=== PATIENT | female | born 1960 | race Caucasian/White ===

== ENCOUNTER 2019-11-25 11:19 | Observation (INO) ==
[~2019-11-25 11:19] MED LIST: Buffered Lidocaine 1% SYRIN 1 ml INTRADERM ONE; Famotidine IV 10 MG/ML 2 ml VIAL (20 mg) IV ONE; Lactated Ringers 1000 ml BAG 1,000 ML IV SCH
[2019-11-25] MEDS ORDERED: Buffered Lidocaine 1% SYRIN 1 ml INTRADERM ONE (11:42)
[2019-11-25] MEDS ORDERED: Famotidine IV 10 MG/ML 2 ml VIAL (20 mg) ONE (11:42)
[2019-11-25] MEDS ORDERED: ceFAZolin 2 GM PREMIX 2 GM/50 ML BAG ONE (11:42)
[2019-11-25] MEDS ORDERED: Midazolam 5 mg/5 ml VIAL 1 mg/ml 5 ml VIAL (5 mg) ONE (12:40)
[2019-11-25] MEDS ORDERED: Ketamine HCL 50 mg/ml 10 ml VIAL (500 MG) ONE (14:28)
[2019-11-25] MEDS ORDERED: Propofol 10 MG/ML 20 ML BTL ONE ×2 (14:28→14:41)
[2019-11-25] MEDS ORDERED: EPHEDrine (Pressors) 50 MG/ML VIAL ONE (14:28)
[2019-11-25] MEDS ORDERED: Dexamethasone IV 4 MG/ML VIAL 1 ml VIAL ONE (14:28)
[2019-11-25] MEDS ORDERED: Glycopyrrolate IV 0.2 MG/ML 1 ML VIAL ONE (14:28)
[2019-11-25] MEDS ORDERED: Phenylephrine 40 mcg/mL 10mL (400mcg) SYRINGE ONE (14:28)
[2019-11-25] MEDS ORDERED: Phenylephrine IV 10 MG/ML 1 ml VIAL ONE (14:28)
[2019-11-25] MEDS ORDERED: Ondansetron 4 mg VIAL 2 MG/ML 2 ml VIAL ONE (14:28)
[2019-11-25] MEDS ORDERED: Morphine 2 MG/ML SYRINGE IV PRN (14:34)
[2019-11-25] MEDS ORDERED: Ondansetron ODT 4 mg TAB 4 MG TAB PO PRN (14:34)
[2019-11-25] MEDS ORDERED: Ondansetron 4 mg VIAL 2 MG/ML 2 ml VIAL IV PRN (14:34)
[2019-11-25] MEDS ORDERED: diPHENhydraMINE IV 50 MG/ML 1 ml VIAL (BENADRYL) IV PRN (14:34)
[2019-11-25] MEDS ORDERED: Magnesium Hydroxide LIQ 30 ML UDC PO PRN (14:34)
[2019-11-25] MEDS ORDERED: Lactulose 30 ml UDC PO PRN (14:34)
[2019-11-25] MEDS ORDERED: diPHENhydraMINE 25 mg TAB PO PRN (14:34)
[2019-11-25] MEDS ORDERED: Albuterol HFA INHALER 8 gm MDI INH PRN (14:39)
[2019-11-25] MEDS ORDERED: ROPIVACAINE 5 MG/ML 30 ML BTL (0.5%) ONE (14:57)
[2019-11-25] MEDS ORDERED: HYDROmorphone 1 MG/1 ML SYRINGE ONE (15:03)
[2019-11-25] MEDS ORDERED: DiMENhydriNATE IV 50 mg/ml 1 ml VIAL IV PUSH PRN (15:22)
[2019-11-25] MEDS ORDERED: Naloxone 0.4 mg VIAL 0.4 mg/ml 1 ml VIAL IV PRN (15:22)
[2019-11-25] MEDS: Lactated Ringers 1000 ml BAG 1,000 ML IV SCH (17:12)
[2019-11-25] MEDS: oxyCODONE/Acetamin 5/325 mg TAB PO PRN (20:11)
[2019-11-25] MEDS: ceFAZolin 1 GM ADVAN 1 GM in NS 0.9% 50 ML 50 ML IVPB SCH (21:08)
[2019-11-25] MEDS: Magnesium Hydroxide LIQ 30 ML UDC PO SCH (21:08)
[2019-11-26] MEDS: Lactated Ringers 1000 ml BAG 1,000 ML IV SCH (03:49)
[2019-11-26 04:52] LABS: Hematocrit 35 % (35-47); Hemoglobin 12.3 g/dL (12.0-16.0); Mean Platelet Volume 8.1 fL (7.4-10.4); Platelet Count 151 10^3/uL (150-450)
[2019-11-26] MEDS: oxyCODONE/Acetamin 5/325 mg TAB PO PRN ×2 (04:56→09:42)
[2019-11-26] MEDS: ceFAZolin 1 GM ADVAN 1 GM in NS 0.9% 50 ML 50 ML IVPB SCH ×2 (04:56→13:03)
[2019-11-26 05:20] LABS: BUN/Creatinine Ratio 14.5 (8-20); Calcium 8.8 mg/dL (8.6-10.3); EGFR African American 85.1 (>60); EGFR Non-African American 70.4 (>60); Potassium 4.7 mmol/L (3.5-5.0)
[2019-11-26] MEDS: Magnesium Hydroxide LIQ 30 ML UDC PO SCH (08:39)
[2019-11-26] MEDS ORDERED: Vitamin THERAPEUTIC TAB PO SCH (09:00)
[2019-11-26 11:46] VITALS: BP 95/50
== END 2019-11-26 14:00 | disposition home or self-care (01) ==
LOC: AA 11:19 → INTOOBSV 11:19 → SSU 14:34
PROVIDERS: ADMIT Orthopaedic Surgery Adult Reconstructive Orthopaedic Surgery; ATTEND Orthopaedic Surgery Adult Reconstructive Orthopaedic Surgery